=== PATIENT | female | born 1955 | race Caucasian/White ===

== ENCOUNTER 2020-08-22 11:51 | Inpatient (IN) ==
[2020-08-22 12:43] LABS: ABS Basophils 0.1 10^3/ul (0-0.2); ABS Eosinophils 0.1 10^3/ul (0-0.6); ABS Lymphocytes 2.2 10^3/ul (1.0-4.8); ABS Monocytes 0.8 10^3/ul (0-0.8); ABS Neutrophils 4.7 10^3/ul (1.5-7.7); Eosinophil % 1.1 %; Hematocrit 39 % (35-47); Hemoglobin 13.5 g/dL (12.0-16.0); Lymphocyte % 28.2 %; Mean Corpuscular HGB Conc 35 g/dL (31-36); Mean Corpuscular Hemoglobin 31 pg (27-31); Mean Corpuscular Volume 89 fL (80-97); Red Blood Count 4.34 10^6 /uL (3.70-4.87); Red Cell Distribution Width 14 % (10-15); White Blood Count 7.8 10^3/uL (3.5-10.8)
[2020-08-22 13:04] LABS: Albumin 3.6 g/dL (3.2-5.2); Albumin/Globulin Ratio 1.3 (1-3); BUN/Creatinine Ratio 16.7 (8-20); Calcium 8.5 mg/dL (8.6-10.3); EGFR African American 108.1 (>60); EGFR Non-African American 89.3 (>60); Globulin 2.7 g/dL (2-4); Potassium 3.1 mmol/L (3.5-5.0); Total Bilirubin 0.7 mg/dL (0.2-1.0); Total Protein 6.3 g/dL (6.4-8.9)
[2020-08-22 14:19] LABS: Platelet Count Platelets clumped. 10^3/uL (150-450)
[2020-08-22] MEDS ORDERED: Ondansetron 4 mg VIAL 2 MG/ML 2 ml VIAL IV PRN (15:10)
[2020-08-22] MEDS ORDERED: NS 0.9% w/ 20 Meq KCL 1000 ml 1,000 ML IV SCH (16:00)
[2020-08-22 17:04] LABS: Magnesium 1.8 mg/dL (1.9-2.7)
[2020-08-22] MEDS ORDERED: Magnesium Sulf 4 GM/100 ML IV 4,000 MG/100 ML BAG IVPB ONE (17:11)
[2020-08-22] MEDS ORDERED: Polyethylene Glycol 3350 17 GM PACKET PO PRN (17:11)
[2020-08-22] MEDS ORDERED: Ondansetron 4 mg VIAL 2 MG/ML 2 ml VIAL ONE (17:36)
[2020-08-22] MEDS ORDERED: Albuterol HFA INHALER 8 gm MDI INH PRN (17:52)
[2020-08-22 18:02] LABS: TSH Ultra Thyroid Stim Horm 0.27 mcIU/mL (0.34-5.60)
[2020-08-22] MEDS: Aspirin EC 81 mg TAB.EC (enteric coated) PO SCH (18:26)
[2020-08-22] MEDS: Enoxaparin 40 MG/0.4 ML SYR SUBCUT SCH (18:26)
[2020-08-22] MEDS ORDERED: Gadoteridol (CONTRAST) 279.3 MG/ML 10 ML IV ONE (20:25)
[2020-08-22] MEDS: Famotidine IV 10 MG/ML 2 ml VIAL (20 mg) IV SLOW PU SCH (21:09)
[2020-08-23 04:38] LABS: Urine Appearance Clear; Urine Bilirubin Negative (Negative); Urine Blood Negative (Negative); Urine Color Yellow; Urine Glucose Negative (Negative); Urine Ketones 1+ (Negative); Urine Nitrite Negative (Negative); Urine Protein Negative (Negative); Urine Specific Gravity 1.019 (1.010-1.030); Urine Urobilinogen Negative (Negative)
[2020-08-23 06:41] LABS: ABS Monocytes 0.7 10^3/ul (0-0.8); Eosinophil % 0.6 %; Hematocrit 37 % (35-47); Hemoglobin 12.7 g/dL (12.0-16.0); Lymphocyte % 17.2 %; Mean Corpuscular HGB Conc 35 g/dL (31-36); Mean Corpuscular Hemoglobin 31 pg (27-31); Mean Corpuscular Volume 89 fL (80-97); Mean Platelet Volume 8.7 fL (7.4-10.4); Platelet Count 109 10^3/uL (150-450); Red Blood Count 4.12 10^6 /uL (3.70-4.87); Red Cell Distribution Width 14 % (10-15); White Blood Count 5.8 10^3/uL (3.5-10.8)
[2020-08-23 06:57] LABS: BUN/Creatinine Ratio 11.4 (8-20); EGFR Non-African American 83.5 (>60); Potassium 2.9 mmol/L (3.5-5.0)
[2020-08-23 06:58] LABS: Albumin 3.1 g/dL (3.2-5.2); Albumin/Globulin Ratio 1.3 (1-3); Calcium 7.4 mg/dL (8.6-10.3); Globulin 2.3 g/dL (2-4); Total Bilirubin 0.6 mg/dL (0.2-1.0); Total Protein 5.4 g/dL (6.4-8.9)
[2020-08-23] MEDS: Famotidine IV 10 MG/ML 2 ml VIAL (20 mg) IV SLOW PU SCH ×2 (07:59→21:12)
[2020-08-23] MEDS: NS 0.9% w/ 40 Meq KCL 1000 ML 1,000 ML IV SCH (11:27)
[2020-08-23] MEDS: KCL 20 MEQ/100 ML IVPREMIX 20 MEQ/100 ML BAG IV SCH ×2 (11:27→15:14)
[2020-08-23] MEDS ORDERED: Gadoteridol (CONTRAST) 279.3 MG/ML 10 ML IV ONE (15:13)
[2020-08-23] MEDS: Enoxaparin 40 MG/0.4 ML SYR SUBCUT SCH (15:14)
[2020-08-23] MEDS: Aspirin EC 81 mg TAB.EC (enteric coated) PO SCH (17:27)
[2020-08-24 08:15] LABS: Albumin 3.1 g/dL (3.2-5.2); Albumin/Globulin Ratio 1.3 (1-3); BUN/Creatinine Ratio 6.8 (8-20); Calcium 7.8 mg/dL (8.6-10.3); EGFR Non-African American 101.7 (>60); Globulin 2.3 g/dL (2-4); Magnesium 1.7 mg/dL (1.9-2.7); Total Bilirubin 0.7 mg/dL (0.2-1.0); Total Protein 5.4 g/dL (6.4-8.9)
[2020-08-24] MEDS: Famotidine IV 10 MG/ML 2 ml VIAL (20 mg) IV SLOW PU SCH ×2 (08:20→23:00)
[2020-08-24 09:28] LABS: ABS Eosinophils 0.1 10^3/ul (0-0.6); ABS Lymphocytes 0.9 10^3/ul (1.0-4.8); ABS Monocytes 0.8 10^3/ul (0-0.8); ABS Neutrophils 3.6 10^3/ul (1.5-7.7); Eosinophil % 2.6 %; Hematocrit 35 % (35-47); Hemoglobin 12.5 g/dL (12.0-16.0); Lymphocyte % 16.1 %; Mean Corpuscular HGB Conc 36 g/dL (31-36); Mean Corpuscular Hemoglobin 31 pg (27-31); Mean Corpuscular Volume 87 fL (80-97); Nucleated Red Blood Cells % 0.1; Red Cell Distribution Width 14 % (10-15); White Blood Count 5.4 10^3/uL (3.5-10.8)
[2020-08-24 09:59] LABS: Platelet Count Platelets clumped. 10^3/uL (150-450)
[2020-08-24] MEDS ORDERED: Magnesium Sulf 4 GM/100 ML IV 4,000 MG/100 ML BAG IVPB ONE (10:46)
[2020-08-24] MEDS: NS 0.9% w/ 40 Meq KCL 1000 ML 1,000 ML IV SCH (12:00)
[2020-08-24] MEDS: Enoxaparin 40 MG/0.4 ML SYR SUBCUT SCH (15:31)
[2020-08-24] MEDS: Aspirin EC 81 mg TAB.EC (enteric coated) PO SCH (18:04)
[2020-08-25] MEDS: NS 0.9% w/ 40 Meq KCL 1000 ML 1,000 ML IV SCH (08:06)
[2020-08-25] MEDS: Famotidine IV 10 MG/ML 2 ml VIAL (20 mg) IV SLOW PU SCH ×2 (08:08→21:32)
[2020-08-25 09:59] LABS: Hematocrit 36 % (35-47); Hemoglobin 12.8 g/dL (12.0-16.0); Mean Corpuscular HGB Conc 36 g/dL (31-36); Mean Corpuscular Hemoglobin 31 pg (27-31); Mean Corpuscular Volume 87 fL (80-97); Red Blood Count 4.14 10^6 /uL (3.70-4.87); Red Cell Distribution Width 14 % (10-15); White Blood Count 3.9 10^3/uL (3.5-10.8)
[2020-08-25 10:20] LABS: Albumin 3.1 g/dL (3.2-5.2); Albumin/Globulin Ratio 1.2 (1-3); BUN/Creatinine Ratio 3.7 (8-20); Calcium 7.9 mg/dL (8.6-10.3); EGFR African American 136.3 (>60); EGFR Non-African American 112.6 (>60); Globulin 2.6 g/dL (2-4); Potassium 3.5 mmol/L (3.5-5.0); Total Bilirubin 0.7 mg/dL (0.2-1.0); Total Protein 5.7 g/dL (6.4-8.9)
[2020-08-25 10:23] LABS: ABS Basophils 0.1 10^3/ul (0-0.2); ABS Eosinophils 0.2 10^3/ul (0-0.6); ABS Lymphocytes 0.8 10^3/ul (1.0-4.8); ABS Monocytes 0.5 10^3/ul (0-0.8); ABS Neutrophils 2.3 10^3/ul (1.5-7.7); Eosinophil % 4.2 %; Lymphocyte % 20.6 %; Platelet Count Platelets clumped. 10^3/uL (150-450)
[2020-08-25] MEDS: Enoxaparin 40 MG/0.4 ML SYR SUBCUT SCH (15:32)
[2020-08-25] MEDS: Aspirin EC 81 mg TAB.EC (enteric coated) PO SCH (17:36)
[2020-08-26] MEDS: NS 0.9% w/ 40 Meq KCL 1000 ML 1,000 ML IV SCH ×2 (00:22→19:39)
[2020-08-26 07:06] LABS: Albumin 2.8 g/dL (3.2-5.2); Albumin/Globulin Ratio 1.2 (1-3); BUN/Creatinine Ratio 3.7 (8-20); Calcium 7.7 mg/dL (8.6-10.3); EGFR African American 136.3 (>60); EGFR Non-African American 112.6 (>60); Globulin 2.3 g/dL (2-4); Potassium 3.7 mmol/L (3.5-5.0); Total Bilirubin 0.6 mg/dL (0.2-1.0); Total Protein 5.1 g/dL (6.4-8.9)
[2020-08-26 07:13] LABS: Hematocrit 34 % (35-47); Hemoglobin 12.2 g/dL (12.0-16.0); Mean Corpuscular HGB Conc 35 g/dL (31-36); Mean Corpuscular Hemoglobin 31 pg (27-31); Mean Corpuscular Volume 88 fL (80-97); Red Cell Distribution Width 14 % (10-15); White Blood Count 3.7 10^3/uL (3.5-10.8)
[2020-08-26 08:41] LABS: ABS Eosinophils 0.2 10^3/ul (0-0.6); ABS Lymphocytes 1.1 10^3/ul (1.0-4.8); ABS Monocytes 0.7 10^3/ul (0-0.8); ABS Neutrophils 1.8 10^3/ul (1.5-7.7); Eosinophil % 5.2 %; Lymphocyte % 28.8 %; Platelet Count Platelets clumped. 10^3/uL (150-450)
[2020-08-26] MEDS: Famotidine IV 10 MG/ML 2 ml VIAL (20 mg) IV SLOW PU SCH ×2 (09:37→19:51)
[2020-08-26] MEDS: Aspirin EC 81 mg TAB.EC (enteric coated) PO SCH (16:40)
[2020-08-26] MEDS: Enoxaparin 40 MG/0.4 ML SYR SUBCUT SCH (16:40)
[2020-08-27 09:55] LABS: ABS Eosinophils 0.2 10^3/ul (0-0.6); ABS Lymphocytes 1.3 10^3/ul (1.0-4.8); ABS Monocytes 0.7 10^3/ul (0-0.8); ABS Neutrophils 1.7 10^3/ul (1.5-7.7); Eosinophil % 5.1 %; Hematocrit 36 % (35-47); Hemoglobin 12.6 g/dL (12.0-16.0); Lymphocyte % 32.9 %; Mean Corpuscular HGB Conc 35 g/dL (31-36); Mean Corpuscular Hemoglobin 31 pg (27-31); Mean Corpuscular Volume 89 fL (80-97); Mean Platelet Volume 8.8 fL (7.4-10.4); Nucleated Red Blood Cells % 0.2; Platelet Count 160 10^3/uL (150-450); Red Blood Count 4.06 10^6 /uL (3.70-4.87); Red Cell Distribution Width 14 % (10-15); White Blood Count 3.9 10^3/uL (3.5-10.8)
[2020-08-27] MEDS: NS 0.9% w/ 40 Meq KCL 1000 ML 1,000 ML IV SCH (09:56)
[2020-08-27] MEDS: Famotidine IV 10 MG/ML 2 ml VIAL (20 mg) IV SLOW PU SCH ×2 (09:56→20:37)
[2020-08-27 10:09] LABS: ALT 25 U/L (7-52); AST 44 U/L (13-39); Albumin 3.1 g/dL (3.2-5.2); Albumin/Globulin Ratio 1.1 (1-3); Alkaline Phosphatase 80 U/L (34-104); Anion Gap 5 mmol/L (2-11); BUN/Creatinine Ratio 3.3 (8-20); Blood Urea Nitrogen 2 mg/dL (6-24); CO2 Carbon Dioxide 23 mmol/L (22-32); Calcium 8.2 mg/dL (8.6-10.3); Chloride 105 mmol/L (101-111); EGFR African American 120.7 (>60); EGFR Non-African American 99.7 (>60); Globulin 2.7 g/dL (2-4); Glucose 94 mg/dL (70-100); Potassium 3.8 mmol/L (3.5-5.0); Sodium 133 mmol/L (135-145); Total Protein 5.8 g/dL (6.4-8.9)
[2020-08-27 11:27] LABS: Vitamin B12 > 1450 pg/mL (180-914)
[2020-08-27] MEDS: Enoxaparin 40 MG/0.4 ML SYR SUBCUT SCH (15:55)
[2020-08-27] MEDS: Aspirin EC 81 mg TAB.EC (enteric coated) PO SCH (17:24)
[2020-08-28] MEDS: NS 0.9% w/ 40 Meq KCL 1000 ML 1,000 ML IV SCH ×3 (00:05→13:22)
[2020-08-28] MEDS: Famotidine IV 10 MG/ML 2 ml VIAL (20 mg) IV SLOW PU SCH ×2 (08:08→20:36)
[2020-08-28] MEDS: Enoxaparin 40 MG/0.4 ML SYR SUBCUT SCH (15:28)
[2020-08-28] MEDS: Aspirin EC 81 mg TAB.EC (enteric coated) PO SCH (17:23)
[2020-08-29 07:46] LABS: Albumin/Globulin Ratio 1.1 (1-3); BUN/Creatinine Ratio 3.5 (8-20); Calcium 8.4 mg/dL (8.6-10.3); EGFR Non-African American 105.8 (>60); Globulin 2.7 g/dL (2-4); Potassium 3.9 mmol/L (3.5-5.0); Total Bilirubin 0.4 mg/dL (0.2-1.0); Total Protein 5.7 g/dL (6.4-8.9)
[2020-08-29] MEDS: Famotidine IV 10 MG/ML 2 ml VIAL (20 mg) IV SLOW PU SCH ×2 (09:14→20:58)
[2020-08-29] MEDS: Enoxaparin 40 MG/0.4 ML SYR SUBCUT SCH (15:49)
[2020-08-29] MEDS: Aspirin EC 81 mg TAB.EC (enteric coated) PO SCH (17:56)
[2020-08-29] MEDS: NS 0.9% w/ 40 Meq KCL 1000 ML 1,000 ML IV SCH (21:02)
[2020-08-30] MEDS: Famotidine IV 10 MG/ML 2 ml VIAL (20 mg) IV SLOW PU SCH ×2 (07:10→07:36)
[2020-08-30 07:35] VITALS: BP 109/62
== END 2020-08-30 12:55 | disposition home health service (06) | DRG 92 ==
LOC: MEDTELE 11:51 → CHOA 11:51 → OBSVTOIN 15:10
PROVIDERS: ADMIT Internal Medicine Hematology & Oncology; ATTEND Internal Medicine Hematology & Oncology

== ENCOUNTER 2021-07-26 19:18 | Inpatient (IN) ==
[2021-07-26 20:40] LABS: Hematocrit 35 % (35-47); Hemoglobin 11.9 g/dL (12.0-16.0); Mean Corpuscular HGB Conc 34 g/dL (31-36); Mean Corpuscular Hemoglobin 30 pg (27-31); Mean Corpuscular Volume 88 fL (80-97); Mean Platelet Volume 8.6 fL (7.4-10.4); Platelet Count 162 10^3/uL (150-450); Red Blood Count 3.92 10^6 /uL (3.70-4.87); Red Cell Distribution Width 14 % (10-15); White Blood Count 7.3 10^3/uL (3.5-10.8)
[2021-07-26 20:56] LABS: Albumin 3.1 g/dL (3.2-5.2); Albumin/Globulin Ratio 1.3 (1-3); Calcium 9.2 mg/dL (8.6-10.3); Globulin 2.3 g/dL (2-4); Potassium 3.2 mmol/L (3.5-5.0); Total Bilirubin 0.9 mg/dL (0.2-1.0); Total Protein 5.4 g/dL (6.4-8.9)
[2021-07-26 20:58] LABS: Troponin I 0.01 ng/mL (<0.03)
[2021-07-26 21:30] LABS: ABS Eosinophils 0.1 10^3/ul (0-0.6); ABS Lymphocytes 0.8 10^3/ul (1.0-4.8); ABS Monocytes 1.6 10^3/ul (0-0.8); ABS Neutrophils 4.7 10^3/ul (1.5-7.7); Lymphocyte % 11.5 %
[2021-07-26] MEDS ORDERED: Albuterol HFA INHALER 8 gm MDI INH PRN (22:09)
[2021-07-26] MEDS ORDERED: Iohexol 350 (CONTRAST) 500 ML MDV IV ONE (22:39)
[2021-07-26 22:57] LABS: Rapid COVID-19 Molecular Undetected (Undetected)
[2021-07-26] MEDS ORDERED: NS 0.9% w/ 20 Meq KCL 1000 ml 1,000 ML IV SCH ×2 (23:00)
[2021-07-27 00:01] LABS: Magnesium 1.2 mg/dL (1.9-2.7)
[2021-07-27] MEDS: Enoxaparin 40 MG/0.4 ML SYR SUBCUT SCH ×2 (00:01→21:24)
[2021-07-27 00:06] LABS: C Reactive Protein 88.88 mg/L (<8.01)
[2021-07-27] MEDS ORDERED: Magnesium Sulf 4 GM/100 ML IV 4,000 MG/100 ML BAG IVPB ONE (00:11)
[2021-07-27 07:25] LABS: Calcium 9.2 mg/dL (8.6-10.3); Potassium 3.3 mmol/L (3.5-5.0)
[2021-07-27 09:35] LABS: Ferritin 78.8 ng/mL (11-307)
[2021-07-27 09:46] LABS: C Reactive Protein 124.55 mg/L (<8.01)
[2021-07-27] MEDS: Aspirin EC 81 mg TAB.EC (enteric coated) PO SCH (18:21)
[2021-07-27] MEDS ORDERED: cefTRIAXone 1 gm/50 mL NS BAG 1 GM/50 ML BAG IVPB SCH (21:00)
[2021-07-28 05:06] LABS: Hematocrit 32 % (35-47); Mean Corpuscular HGB Conc 34 g/dL (31-36); Mean Corpuscular Hemoglobin 30 pg (27-31); Mean Corpuscular Volume 87 fL (80-97); Mean Platelet Volume 8.7 fL (7.4-10.4); Platelet Count 137 10^3/uL (150-450); Red Blood Count 3.68 10^6 /uL (3.70-4.87); Red Cell Distribution Width 14 % (10-15); White Blood Count 4.1 10^3/uL (3.5-10.8)
[2021-07-28 05:23] LABS: Calcium 7.8 mg/dL (8.6-10.3); Magnesium 1.6 mg/dL (1.9-2.7)
[2021-07-28] MEDS ORDERED: Magnesium Sulf 4 GM/100 ML IV 4,000 MG/100 ML BAG IVPB ONE (08:00)
[2021-07-28 08:23] LABS: Phosphorus 3.9 mg/dL (2.5-5.0)
[2021-07-28] MEDS ORDERED: Calcium Gluconate 2 GM in NS 0.9% 100 ml BAG 100 ML IV ONE (08:30)
[2021-07-28] MEDS: KCL 20 MEQ/100 ML IVPREMIX 20 MEQ/100 ML BAG IV SCH ×2 (08:43→16:56)
[2021-07-28] MEDS: Aspirin EC 81 mg TAB.EC (enteric coated) PO SCH (08:51)
[2021-07-28] MEDS: Potassium Chlor 20 meq TAB.ER PO SCH ×2 (08:51→12:22)
[2021-07-28 18:24] LABS: Calcium 8.3 mg/dL (8.6-10.3); Magnesium 2.6 mg/dL (1.9-2.7); Potassium 3.8 mmol/L (3.5-5.0)
[2021-07-28] MEDS ORDERED: Iohexol 300 (CONTRAST) 10 ML SDV IV ONE (19:27)
[2021-07-28] MEDS: Enoxaparin 40 MG/0.4 ML SYR SUBCUT SCH (22:01)
[2021-07-29 03:14] LABS: Urine Appearance Clear; Urine Bilirubin Negative (Negative); Urine Blood 2+ (Negative); Urine Color Straw; Urine Glucose Negative (Negative); Urine Ketones Trace (Negative); Urine Nitrite Negative (Negative); Urine Protein Negative (Negative); Urine Specific Gravity 1.029 (1.002-1.030); Urine Urobilinogen Negative (Negative)
[2021-07-29 03:18] LABS: Urine Bacteria Absent (Absent); Urine Red Blood Cell Trace(0-2/hpf) (Absent); Urine Squamous Epithelial Cell Present (Absent); Urine White Blood Cell Trace(0-5/hpf) (Absent)
[2021-07-29 06:20] LABS: ABS Eosinophils 0.4 10^3/ul (0-0.6); ABS Monocytes 0.6 10^3/ul (0-0.8); ABS Neutrophils 2.3 10^3/ul (1.5-7.7); Eosinophil % 8.2 %; Hematocrit 31 % (35-47); Lymphocyte % 22.7 %; Mean Corpuscular HGB Conc 35 g/dL (31-36); Mean Corpuscular Hemoglobin 31 pg (27-31); Mean Corpuscular Volume 87 fL (80-97); Mean Platelet Volume 8.5 fL (7.4-10.4); Nucleated Red Blood Cells % 0.1; Platelet Count 170 10^3/uL (150-450); Red Blood Count 3.58 10^6 /uL (3.70-4.87); Red Cell Distribution Width 14 % (10-15); White Blood Count 4.3 10^3/uL (3.5-10.8)
[2021-07-29 06:51] LABS: Calcium 8.3 mg/dL (8.6-10.3); Magnesium 1.8 mg/dL (1.9-2.7); Phosphorus 3.8 mg/dL (2.5-5.0); Potassium 3.7 mmol/L (3.5-5.0)
[2021-07-29] MEDS ORDERED: Potassium Chloride LIQUID 20 MEQ/15 ML LIQUID PO SCH (09:00)
[2021-07-29] MEDS ORDERED: POTASSIUM CITRATE PO SCH (09:00)
[2021-07-29] MEDS: Aspirin EC 81 mg TAB.EC (enteric coated) PO SCH (09:33)
[2021-07-29] MEDS: Potassium Chloride LIQUID 20 MEQ/15 ML LIQUID PO ONE ×2 (09:35→09:42)
[2021-07-29] MEDS ORDERED: Potassium Chlor 20 meq TAB.ER PO ONE (10:00)
[2021-07-29] MEDS ORDERED: Magnesium Sulfate 2 gm BAG 2 GM/50 ML BAG IVPB ONE (14:07)
[2021-07-29] MEDS: Enoxaparin 40 MG/0.4 ML SYR SUBCUT SCH (19:55)
[2021-07-30] MEDS: Aspirin EC 81 mg TAB.EC (enteric coated) PO SCH (07:30)
[2021-07-30] MEDS ORDERED: Cosyntropin 0.25 MG VIAL IV ONE ×2 (08:00)
[2021-07-30] MEDS ORDERED: Ondansetron 4 mg VIAL 2 MG/ML 2 ml VIAL IV ONE (12:00)
[2021-07-30] MEDS: Enoxaparin 40 MG/0.4 ML SYR SUBCUT SCH (20:28)
[2021-07-31] MEDS: Aspirin EC 81 mg TAB.EC (enteric coated) PO SCH (08:44)
[2021-07-31 15:57] VITALS: BP 108/66
[2021-08-01 17:32] LABS: Anaplasma phagocytophilum Negative (Negative); B. miyamotoi PCR, B Negative (Negative); Babesia divergens/MO-1 Negative (Negative); Babesia ducani Negative (Negative); Ehrlichia chaffeensis Negative (Negative); Ehrlichia ewingii/canis Negative (Negative); Ehrlichia muris eauclairensis Negative (Negative)
== END 2021-07-31 16:15 | disposition home or self-care (01) | DRG 194 ==
LOC: ED 19:18 → SUATTDRO 07-27 01:00 → EDHOLD 07-27 01:00 → MED 07-27 15:02
PROVIDERS: ADMIT Internal Medicine; ATTEND Internal Medicine

== ENCOUNTER 2021-08-20 02:10 | Inpatient (IN) ==
[2021-08-20] MEDS ORDERED: Lactated Ringers 1000 ml BAG 1,000 ML IV ONE (07:10)
[2021-08-20] MEDS ORDERED: Ondansetron 4 mg VIAL 2 MG/ML 2 ml VIAL IV ONE ×2 (07:41→12:37)
[2021-08-20] MEDS ORDERED: Morphine 4 MG/ML VIAL (1 ml) IV ONE (07:41)
[2021-08-20 07:49] LABS: ABS Eosinophils 0.2 10^3/ul (0-0.6); ABS Lymphocytes 2.4 10^3/ul (1.0-4.8); ABS Monocytes 0.5 10^3/ul (0-0.8); Hematocrit 35 % (35-47); Hemoglobin 12.2 g/dL (12.0-16.0); Lymphocyte % 38.6 %; Mean Corpuscular HGB Conc 35 g/dL (31-36); Mean Corpuscular Hemoglobin 31 pg (27-31); Mean Corpuscular Volume 88 fL (80-97); Mean Platelet Volume 8.8 fL (7.4-10.4); Platelet Count 158 10^3/uL (150-450); Red Blood Count 3.94 10^6 /uL (3.70-4.87); Red Cell Distribution Width 15 % (10-15); White Blood Count 6.1 10^3/uL (3.5-10.8)
[2021-08-20 08:06] LABS: Albumin 3.6 g/dL (3.2-5.2); Albumin/Globulin Ratio 1.3 (1-3); C Reactive Protein 21.73 mg/L (<8.01); Globulin 2.8 g/dL (2-4); Magnesium 1.5 mg/dL (1.9-2.7); Potassium 2.9 mmol/L (3.5-5.0); Total Bilirubin 0.7 mg/dL (0.2-1.0); Total Protein 6.4 g/dL (6.4-8.9)
[2021-08-20] MEDS ORDERED: Iohexol 350 (CONTRAST) 500 ML MDV IV ONE (08:09)
[2021-08-20] MEDS ORDERED: Potassium Chlor 20 meq TAB.ER PO ONE (08:15)
[2021-08-20] MEDS ORDERED: Magnesium Sulfate 2 gm BAG 2 GM/50 ML BAG IVPB ONE (08:15)
[2021-08-20] MEDS ORDERED: KCL 20 MEQ/100 ML IVPREMIX 20 MEQ/100 ML BAG IV ONE (08:15)
[2021-08-20] MEDS ORDERED: HYDROmorphone 0.5 MG/0.5 ML SYRINGE IV ONE ×2 (08:20→12:37)
[2021-08-20] MEDS ORDERED: Metoclopramide 5 MG/ML VIAL (10 mg) IV ONE (09:53)
[2021-08-20] MEDS ORDERED: Ondansetron 4 mg VIAL 2 MG/ML 2 ml VIAL IV PRN (13:45)
[2021-08-20] MEDS ORDERED: Albuterol 2.5mg/3 ml (0.083%) NEB.SOLN INH PRN (13:46)
[2021-08-20 15:18] LABS: Rapid COVID-19 Molecular Undetected (Undetected)
[2021-08-20] MEDS: Enoxaparin 40 MG/0.4 ML SYR SUBCUT SCH (17:02)
[2021-08-20] MEDS: HYDROmorphone 0.5 MG/0.5 ML SYRINGE IV PRN ×3 (17:02→20:31)
[2021-08-20] MEDS ORDERED: Palonosetron 0.05 MG/ML 5 ML VIAL IV PRN (18:20)
[2021-08-20] MEDS ORDERED: Prochlorperazine 5 mg/ml 2 ml VIAL (10 mg) IV PRN (18:23)
[2021-08-20] MEDS: Potassium Chloride LIQUID 20 MEQ/15 ML LIQUID PO SCH (20:17)
[2021-08-20] MEDS: Metoclopramide 5 MG/ML VIAL (10 mg) IV PRN (20:18)
[2021-08-21] MEDS: HYDROmorphone 0.5 MG/0.5 ML SYRINGE IV PRN ×3 (03:45→17:51)
[2021-08-21 05:47] LABS: Albumin 3.7 g/dL (3.2-5.2); Albumin/Globulin Ratio 1.2 (1-3); Calcium 8.7 mg/dL (8.6-10.3); Globulin 3.2 g/dL (2-4); Potassium 3.7 mmol/L (3.5-5.0); Total Bilirubin 0.5 mg/dL (0.2-1.0); Total Protein 6.9 g/dL (6.4-8.9)
[2021-08-21] MEDS: Metoclopramide 5 MG/ML VIAL (10 mg) IV PRN ×2 (07:55→14:47)
[2021-08-21] MEDS: Aspirin EC 81 mg TAB.EC (enteric coated) PO SCH (08:05)
[2021-08-21 08:12] LABS: Venous Bicarbonate HCO3 16.8 mmol/L (24-28)
[2021-08-21 10:49] LABS: Calcium 9.2 mg/dL (8.6-10.3); Potassium 4.5 mmol/L (3.5-5.0)
[2021-08-21] MEDS: Potassium Chloride LIQUID 20 MEQ/15 ML LIQUID PO SCH ×2 (11:24→21:07)
[2021-08-21] MEDS: Lidocaine PATCH 5% PATCH TRANSDERM SCH (14:52)
[2021-08-21] MEDS: Enoxaparin 40 MG/0.4 ML SYR SUBCUT SCH (17:50)
[2021-08-21] MEDS: Lidocaine Patch REMOVE PATCH PATCH OFF SCH (21:12)
[2021-08-22 05:50] LABS: Calcium 8.8 mg/dL (8.6-10.3); Magnesium 1.9 mg/dL (1.9-2.7); Potassium 3.7 mmol/L (3.5-5.0)
[2021-08-22] MEDS: Potassium Chloride LIQUID 20 MEQ/15 ML LIQUID PO SCH ×2 (09:08→21:19)
[2021-08-22] MEDS: Lidocaine PATCH 5% PATCH TRANSDERM SCH (09:08)
[2021-08-22] MEDS: Aspirin EC 81 mg TAB.EC (enteric coated) PO SCH (09:08)
[2021-08-22] MEDS ORDERED: Gadoteridol (CONTRAST) 279.3 MG/ML 10 ML IV ONE (16:03)
[2021-08-22] MEDS: Enoxaparin 40 MG/0.4 ML SYR SUBCUT SCH (17:50)
[2021-08-22] MEDS: Lidocaine Patch REMOVE PATCH PATCH OFF SCH (21:20)
[2021-08-23] MEDS: Potassium Chloride LIQUID 20 MEQ/15 ML LIQUID PO SCH ×2 (10:15→20:22)
[2021-08-23] MEDS: Aspirin EC 81 mg TAB.EC (enteric coated) PO SCH (10:16)
[2021-08-23] MEDS: Lidocaine PATCH 5% PATCH TRANSDERM SCH (10:19)
[2021-08-23] MEDS ORDERED: Polyethylene Glycol 3350 17 GM PACKET PO PRN (12:45)
[2021-08-23] MEDS: Scopolamine PATCH Remove NOTE PATCH OFF SCH (14:49)
[2021-08-23] MEDS: Enoxaparin 40 MG/0.4 ML SYR SUBCUT SCH (17:40)
[2021-08-23] MEDS: Lidocaine Patch REMOVE PATCH PATCH OFF SCH (20:31)
[2021-08-24] MEDS: Lidocaine PATCH 5% PATCH TRANSDERM SCH (08:53)
[2021-08-24] MEDS: Aspirin EC 81 mg TAB.EC (enteric coated) PO SCH (08:53)
[2021-08-24] MEDS: Potassium Chloride LIQUID 20 MEQ/15 ML LIQUID PO SCH ×2 (08:53→20:30)
[2021-08-24] MEDS: Enoxaparin 40 MG/0.4 ML SYR SUBCUT SCH (18:13)
[2021-08-24] MEDS: Lidocaine Patch REMOVE PATCH PATCH OFF SCH (20:43)
[2021-08-25 05:48] LABS: ABS Basophils 0.1 10^3/ul (0-0.2); ABS Eosinophils 0.2 10^3/ul (0-0.6); ABS Lymphocytes 2.9 10^3/ul (1.0-4.8); ABS Monocytes 0.7 10^3/ul (0-0.8); ABS Neutrophils 2.5 10^3/ul (1.5-7.7); Eosinophil % 3.7 %; Hematocrit 36 % (35-47); Hemoglobin 12.3 g/dL (12.0-16.0); Lymphocyte % 45.6 %; Mean Corpuscular HGB Conc 34 g/dL (31-36); Mean Corpuscular Hemoglobin 30 pg (27-31); Mean Corpuscular Volume 89 fL (80-97); Mean Platelet Volume 8.5 fL (7.4-10.4); Platelet Count 185 10^3/uL (150-450); Red Blood Count 4.04 10^6 /uL (3.70-4.87); Red Cell Distribution Width 15 % (10-15); White Blood Count 6.4 10^3/uL (3.5-10.8)
[2021-08-25 06:19] LABS: Calcium 8.6 mg/dL (8.6-10.3); Potassium 3.5 mmol/L (3.5-5.0)
[2021-08-25] MEDS: Lidocaine PATCH 5% PATCH TRANSDERM SCH (09:19)
[2021-08-25] MEDS: Potassium Chloride LIQUID 20 MEQ/15 ML LIQUID PO SCH ×2 (09:19→19:47)
[2021-08-25] MEDS: Aspirin EC 81 mg TAB.EC (enteric coated) PO SCH (09:19)
[2021-08-25] MEDS: Enoxaparin 40 MG/0.4 ML SYR SUBCUT SCH (18:11)
[2021-08-25] MEDS: Metoclopramide 5 MG/ML VIAL (10 mg) IV PRN (19:44)
[2021-08-25] MEDS: Lidocaine Patch REMOVE PATCH PATCH OFF SCH (22:33)
[2021-08-25] MEDS: prednisoLONE 1% OPHTH.SUSP 5 ML OPHTH.SUSP BOTH EYES SCH (22:38)
[2021-08-25] MEDS: CMCS:Ketorolac 0.5% OPHTH (NF) 0.5 % 5 ML BTL BOTH EYES SCH (22:38)
[2021-08-26] MEDS: Potassium Chloride LIQUID 20 MEQ/15 ML LIQUID PO SCH ×2 (09:51→20:37)
[2021-08-26] MEDS: prednisoLONE 1% OPHTH.SUSP 5 ML OPHTH.SUSP BOTH EYES SCH ×4 (09:52→20:40)
[2021-08-26] MEDS: Lidocaine PATCH 5% PATCH TRANSDERM SCH (09:52)
[2021-08-26] MEDS: Aspirin EC 81 mg TAB.EC (enteric coated) PO SCH (09:53)
[2021-08-26] MEDS: CMCS:Ketorolac 0.5% OPHTH (NF) 0.5 % 5 ML BTL BOTH EYES SCH ×4 (09:53→20:40)
[2021-08-26] MEDS: Scopolamine PATCH Remove NOTE PATCH OFF SCH (17:26)
[2021-08-26] MEDS: Enoxaparin 40 MG/0.4 ML SYR SUBCUT SCH (18:16)
[2021-08-27] MEDS: Lidocaine Patch REMOVE PATCH PATCH OFF SCH ×2 (01:27→23:25)
[2021-08-27] MEDS: Lidocaine PATCH 5% PATCH TRANSDERM SCH (10:10)
[2021-08-27] MEDS: Aspirin EC 81 mg TAB.EC (enteric coated) PO SCH (10:12)
[2021-08-27] MEDS: Potassium Chloride LIQUID 20 MEQ/15 ML LIQUID PO SCH ×2 (10:12→22:31)
[2021-08-27] MEDS: prednisoLONE 1% OPHTH.SUSP 5 ML OPHTH.SUSP BOTH EYES SCH ×4 (10:28→22:40)
[2021-08-27] MEDS: CMCS:Ketorolac 0.5% OPHTH (NF) 0.5 % 5 ML BTL BOTH EYES SCH ×4 (10:28→22:40)
[2021-08-27] MEDS: Enoxaparin 40 MG/0.4 ML SYR SUBCUT SCH (17:48)
[2021-08-28] MEDS: prednisoLONE 1% OPHTH.SUSP 5 ML OPHTH.SUSP BOTH EYES SCH ×4 (08:49→22:17)
[2021-08-28] MEDS: CMCS:Ketorolac 0.5% OPHTH (NF) 0.5 % 5 ML BTL BOTH EYES SCH ×4 (08:51→22:11)
[2021-08-28] MEDS: Aspirin EC 81 mg TAB.EC (enteric coated) PO SCH (08:52)
[2021-08-28] MEDS: Lidocaine PATCH 5% PATCH TRANSDERM SCH (08:53)
[2021-08-28] MEDS: Potassium Chloride LIQUID 20 MEQ/15 ML LIQUID PO SCH ×2 (08:54→22:08)
[2021-08-28] MEDS: Enoxaparin 40 MG/0.4 ML SYR SUBCUT SCH (18:23)
[2021-08-28] MEDS: Lidocaine Patch REMOVE PATCH PATCH OFF SCH (22:09)
[2021-08-29 06:54] LABS: ABS Basophils 0.1 10^3/ul (0-0.2); ABS Eosinophils 0.2 10^3/ul (0-0.6); ABS Lymphocytes 3.2 10^3/ul (1.0-4.8); ABS Monocytes 0.6 10^3/ul (0-0.8); ABS Neutrophils 3.5 10^3/ul (1.5-7.7); Eosinophil % 3.1 %; Hematocrit 36 % (35-47); Mean Corpuscular HGB Conc 34 g/dL (31-36); Mean Corpuscular Hemoglobin 31 pg (27-31); Mean Corpuscular Volume 90 fL (80-97); Mean Platelet Volume 8.6 fL (7.4-10.4); Platelet Count 279 10^3/uL (150-450); Red Blood Count 3.93 10^6 /uL (3.70-4.87); Red Cell Distribution Width 16 % (10-15); White Blood Count 7.6 10^3/uL (3.5-10.8)
[2021-08-29 07:15] LABS: Albumin 3.5 g/dL (3.2-5.2); Albumin/Globulin Ratio 1.3 (1-3); Calcium 8.9 mg/dL (8.6-10.3); Globulin 2.8 g/dL (2-4); Potassium 3.6 mmol/L (3.5-5.0); Total Bilirubin 0.2 mg/dL (0.2-1.0); Total Protein 6.3 g/dL (6.4-8.9)
[2021-08-29] MEDS: Potassium Chloride LIQUID 20 MEQ/15 ML LIQUID PO SCH ×2 (08:46→20:38)
[2021-08-29] MEDS: Aspirin EC 81 mg TAB.EC (enteric coated) PO SCH (08:47)
[2021-08-29] MEDS: prednisoLONE 1% OPHTH.SUSP 5 ML OPHTH.SUSP BOTH EYES SCH ×4 (08:49→20:40)
[2021-08-29] MEDS: CMCS:Ketorolac 0.5% OPHTH (NF) 0.5 % 5 ML BTL BOTH EYES SCH ×4 (08:49→20:40)
[2021-08-29] MEDS: Lidocaine PATCH 5% PATCH TRANSDERM SCH (08:50)
[2021-08-29] MEDS: Scopolamine PATCH Remove NOTE PATCH OFF SCH (16:56)
[2021-08-29] MEDS: Enoxaparin 40 MG/0.4 ML SYR SUBCUT SCH (16:57)
[2021-08-29] MEDS: Lidocaine Patch REMOVE PATCH PATCH OFF SCH (20:39)
[2021-08-30] MEDS: Aspirin EC 81 mg TAB.EC (enteric coated) PO SCH (08:46)
[2021-08-30] MEDS: CMCS:Ketorolac 0.5% OPHTH (NF) 0.5 % 5 ML BTL BOTH EYES SCH ×4 (08:48→20:44)
[2021-08-30] MEDS: Lidocaine PATCH 5% PATCH TRANSDERM SCH (08:49)
[2021-08-30] MEDS: prednisoLONE 1% OPHTH.SUSP 5 ML OPHTH.SUSP BOTH EYES SCH ×4 (08:51→20:44)
[2021-08-30] MEDS: Potassium Chloride LIQUID 20 MEQ/15 ML LIQUID PO SCH ×2 (08:53→20:41)
[2021-08-30] MEDS: Enoxaparin 40 MG/0.4 ML SYR SUBCUT SCH (18:01)
[2021-08-30] MEDS: Lidocaine Patch REMOVE PATCH PATCH OFF SCH (20:41)
[2021-08-31] MEDS: Aspirin EC 81 mg TAB.EC (enteric coated) PO SCH (08:27)
[2021-08-31] MEDS: Potassium Chloride LIQUID 20 MEQ/15 ML LIQUID PO SCH ×2 (08:30→21:26)
[2021-08-31] MEDS: Lidocaine PATCH 5% PATCH TRANSDERM SCH ×2 (08:35→08:36)
[2021-08-31] MEDS: CMCS:Ketorolac 0.5% OPHTH (NF) 0.5 % 5 ML BTL BOTH EYES SCH ×4 (08:36→21:39)
[2021-08-31] MEDS: prednisoLONE 1% OPHTH.SUSP 5 ML OPHTH.SUSP BOTH EYES SCH ×4 (08:37→21:39)
[2021-08-31] MEDS: Enoxaparin 40 MG/0.4 ML SYR SUBCUT SCH (17:44)
[2021-08-31] MEDS: Lidocaine Patch REMOVE PATCH PATCH OFF SCH (22:50)
[2021-09-01 05:25] LABS: Calcium 8.4 mg/dL (8.6-10.3); Magnesium 1.7 mg/dL (1.9-2.7); Potassium 3.6 mmol/L (3.5-5.0)
[2021-09-01] MEDS: Aspirin EC 81 mg TAB.EC (enteric coated) PO SCH (07:34)
[2021-09-01] MEDS: CMCS:Ketorolac 0.5% OPHTH (NF) 0.5 % 5 ML BTL BOTH EYES SCH ×2 (07:36→12:51)
[2021-09-01] MEDS: prednisoLONE 1% OPHTH.SUSP 5 ML OPHTH.SUSP BOTH EYES SCH ×2 (07:36→12:52)
[2021-09-01] MEDS: Lidocaine PATCH 5% PATCH TRANSDERM SCH (07:37)
[2021-09-01] MEDS: Potassium Chloride LIQUID 20 MEQ/15 ML LIQUID PO SCH (07:37)
[2021-09-01 11:24] VITALS: BP 100/59
== END 2021-09-01 16:25 | disposition home or self-care (01) | DRG 948 ==
LOC: ED 02:10 → EDHOLD 02:10 → MED 02:10 → SUATTDRO 12:43 → MED 16:26
PROVIDERS: ADMIT Internal Medicine; ATTEND Internal Medicine Hematology & Oncology